=== PATIENT | female | born 1940 | race Caucasian/White ===

== ENCOUNTER → 2024-11-02 | Outpatient (CLI) | payer BC, MEDICARE, SELFPAY ==
[2024-11-02 12:09] LABS: Basophils % (Auto) 0 % (0-2.5); Eosinophils # (Auto) 0.1 Thou/mm3 (0.0-0.5); Eosinophils % (Auto) 2 % (0-10); Hematocrit 47.3 % (36.0-46.0); Hemoglobin 15.7 g/dL (12.0-16.0); Immature Granulocytes % (Auto) 0 % (0-0); Immature Granulocytes Auto 0.01 Thou/mm3 (0.00-0.00); Lymphocytes # (Auto) 1.9 Thou/mm3 (1.0-4.8); Lymphocytes % (Auto) 33 % (10-50); Mean Corpuscular HGB Conc 33.2 g/dl (31.0-37.0); Mean Corpuscular Volume 94 fL (80-100); Monocytes # (Auto) 0.5 Thou/mm3 (0.0-0.8); Monocytes % (Auto) 8 % (0-12); Neutrophils # (Auto) 3.2 Thou/mm3 (1.8-7.7); Neutrophils % (Auto) 56 % (37-80); Nucleated Red Blood Cell % 0 /100 WBC (0); Platelet Count 188 Thou/mm3 (140-440); Red Blood Count 5.06 Miln/mm3 (4.00-5.20); White Blood Count 5.7 Thou/mm3 (3.6-11.0)
[2024-11-02 12:45] LABS: Alanine Aminotransferase 41 U/L (10-49); Albumin, Serum 4.4 gm/dL (3.4-4.8); Albumin/Globulin Ratio 1.8 (1.2-2.2); Alkaline Phosphatase 84 U/L (46-116); Anion Gap 9 (7-16); Aspartate Amino Transferase 20 U/L (0-34); BUN/Creatinine Ratio 23 Ratio (12-20); Bilirubin,Total 0.7 mg/dL (0.3-1.2); Blood Urea Nitrogen 18 mg/dL (9-23); Calcium 9.9 mg/dL (8.3-10.6); Calcium (Corrected) 9.9 mg/dL (8.5-10.1); Carbon Dioxide 26.1 mMol/L (20.0-31.0); Chloride 108 mMol/L (98-107); Cholesterol 180 mg/dL (132-200); Creatinine (Component) 0.8 mg/dL (0.6-1.3); Globulin 2.5 gm/dL (2.3-3.5); Glucose 94 mg/dL (74-106); HDL Cholesterol 61 mg/dL (40-60); LDL Cholesterol,Calculated 99 mg/dL (0-130); Osmolality,Calculated 286 (275-295); Potassium 4.5 mMol/L (3.4-5.1); Sodium 143 mMol/L (136-145); Thyroid Stimulating Hormone 1.83 uIU/mL (0.55-4.78); Total Protein 6.9 gm/dL (5.7-8.2); Triglycerides 102 mg/dL (30-150); eGFR > 60 See Note
== END | disposition home or self-care (01) ==
PROVIDERS: PCP Family Medicine; Referring Provider Family Medicine; Visit Provider Family Medicine
DX: Z00.00 Encounter for general adult medical examination without abnormal findings (principal); I25.10 Atherosclerotic heart disease of native coronary artery without angina pectoris; E78.2 Mixed hyperlipidemia
CPT/HCPCS: 36415; 80053; 80061; 84443; 85025

== ENCOUNTER → 2025-05-13 | Outpatient (CLI) | payer MEDICARE, BC, SELFPAY ==
[2025-05-13 12:06] LABS: Basophils % (Auto) 1 % (0-2.5); Eosinophils # (Auto) 0.2 Thou/mm3 (0.0-0.5); Eosinophils % (Auto) 3 % (0-10); Hematocrit 44.2 % (36.0-46.0); Hemoglobin 14.6 g/dL (12.0-16.0); Immature Granulocytes % (Auto) 0 % (0-0); Immature Granulocytes Auto 0.02 Thou/mm3 (0.00-0.00); Lymphocytes # (Auto) 2.2 Thou/mm3 (1.0-4.8); Lymphocytes % (Auto) 42 % (10-50); Mean Corpuscular Hemoglobin 28.7 pg (25.0-35.0); Mean Corpuscular Volume 87 fL (80-100); Monocytes # (Auto) 0.5 Thou/mm3 (0.0-0.8); Monocytes % (Auto) 9 % (0-12); Neutrophils # (Auto) 2.3 Thou/mm3 (1.8-7.7); Neutrophils % (Auto) 45 % (37-80); Nucleated Red Blood Cell % 0 /100 WBC (0); Platelet Count 196 Thou/mm3 (140-440); RDW Standard Deviation 49.8 fL (36.4-46.3); Red Blood Count 5.08 Miln/mm3 (4.00-5.20); White Blood Count 5.2 Thou/mm3 (3.6-11.0)
[2025-05-13 12:27] LABS: Alanine Aminotransferase 18 U/L (10-49); Albumin, Serum 4.1 gm/dL (3.4-4.8); Albumin/Globulin Ratio 1.6 (1.2-2.2); Alkaline Phosphatase 88 U/L (46-116); Anion Gap 9 (7-16); Aspartate Amino Transferase 24 U/L (0-34); BUN/Creatinine Ratio 16 Ratio (12-20); Bilirubin,Total 0.4 mg/dL (0.3-1.2); Blood Urea Nitrogen 13 mg/dL (9-23); Calcium 9.8 mg/dL (8.3-10.6); Calcium (Corrected) 9.8 mg/dL (8.5-10.1); Carbon Dioxide 29.4 mMol/L (20.0-31.0); Cardiac Risk Estimate 4.4 RATIO (3.7-5.6); Chloride 107 mMol/L (98-107); Cholesterol 248 mg/dL (132-200); Creatinine (Component) 0.8 mg/dL (0.6-1.3); Globulin 2.6 gm/dL (2.3-3.5); Glucose 111 mg/dL (74-106); HDL Cholesterol 57 mg/dL (40-60); LDL Cholesterol,Calculated 166 mg/dL (0-130); Osmolality,Calculated 289 (275-295); Potassium 4.3 mMol/L (3.4-5.1); Sodium 145 mMol/L (136-145); Thyroid Stimulating Hormone 0.71 uIU/mL (0.55-4.78); Total Protein 6.7 gm/dL (5.7-8.2); Triglycerides 123 mg/dL (30-150); eGFR > 60 See Note
[2025-05-13 13:15] LABS: Collection Type, Urine Clean Catch
[2025-05-13 14:11] LABS: Bacteria,Urine 4+; Bilirubin,Urine Negative (Negative); Blood,Urine Negative (Negative); Color,Urine Yellow (Lt Yel-Yel); Glucose, Urine Negative (Negative); Ketones,Urine Negative (Negative); Leukocyte Esterase,Urine Positive (Negative); Nitrite,Urine Positive (Negative); Protein,Urine Negative (Neg - Trace); RBC,Urine 2 /hpf (0-3); Specific Gravity,Urine 1.026 (1.001-1.035); Squamous Epithelial Cell,Urine < 1 /hpf (0-5); Urobilinogen,Urine Negative mg/dL (0.0-1.0); WBC,Urine 12 /hpf (0-5)
[2025-05-13 14:13] LABS: Clarity,Urine Cloudy (Clear/Hazy)
== END | disposition home or self-care (01) ==
LOC: COPL 11:18
PROVIDERS: PCP Family Medicine; Referring Provider Family Medicine; Visit Provider Family Medicine
DX: Z00.00 Encounter for general adult medical examination without abnormal findings (principal); E78.2 Mixed hyperlipidemia; E03.9 Hypothyroidism, unspecified; I10 Essential (primary) hypertension
CPT/HCPCS: 36415; 80053; 80061; 81001; 84443; 85025

== ENCOUNTER 2025-07-02 20:47 | Emergency (ER) | payer MEDICARE, BC, SELFPAY ==
[2025-07-02 20:48] VITALS: BP 150/78; PULSE 77; RESP 18; TEMP 37.2; O2SAT 98
--- NOTE | 2025-07-02 20:54 | EDNOTE_ITS ---
ED General RME/HPI General Chief complaint: General Adult/Misc Complain Stated complaint: NOSE BLEED Time Seen by Provider: 07/02/25 20:53 Arrival date/time: 07/02/25 20:47 CC: Bloody nose HPI patient presents to the ER via EMS who report the patient initial call went out for bloody nose however when they arrived the patient's nose stopped bleeding patient is on blood thinners however the family members the patient state the patient had significant GI bleed 6 7 months ago and they are worried that she may be bleeding again . Patient is demented with poor historian states that she did have a bloody nose recently but states her stools have been pale yellow. Patient denies fever chills chest pain shortness of breath or difficulty breathing. EMS report stable vital signs. Patient is awake alert and oriented to self. Related Data Home Medications ?Medication ?Instructions ?Recorded ?Confirmed Unobtainable 10/05/23 10/05/23 Allergies Allergy/AdvReac Type Severity Reaction Status Date / Time MYCIN ANTIBIOTICS Allergy Mild Uncoded 09/17/09 00:40 Review of Systems Review of Systems Narrative Review of Systems: GEN: No fever, no chills, no weight loss EYES: No discharge, no visual changes, no pain HEENT: No ear pain, no congestion, no sore throat PULM: No shortness of breath, no cough, no congestion CV: No chest pain, no dyspnea on exertion, no palpitations GI: No nausea, no vomiting, no diarrhea, no pain, no constipation : No frequency, no urgency, no dysuria MUSC/SKEL: No joint pain, no back pain SKIN: No rash PSYCH: No hallucinations, no depression HEME/LYMPH: No easy bleeding or bruising tendencies NEURO: No weakness, no headache Past Medical History Past Medical History CARDIAC: Negative Congestive Heart Failure RESPIRATORY: Negative Chronic Obstructive Pulmonary Disease (COPD) GENITOURINARY: Negative Renal Disease REPRODUCTIVE: Positive Breast Cancer (bilat breast) ENDOCRINE: Negative Diabetes Mellitus Type 1 or Diabetes Mellitus Type 2 OTHER HISTORY: Positive Cancer and Breast Cancer (bilat breast) Social History SMOKING STATUS: Former smoker ED Exam Narrative Physical exam: [General: Appears not in any acute distress Head normocephalic HEENT: Within acceptable limits Neck is supple nontender Chest equal chest rise nontender to palpation Respiratory: Clear to auscultation no wheezes crackles or rubs CV: Rate rhythm is regular no murmurs rubs or clicks Abdomen is distended secondary to body habitus soft nontender no masses positive bowel sounds all 4 quadrants GI: Rectum: Old hemorrhoids, moderate rectal tone, vault is small amount of firm stool guaiac negative. Back: No CVA tenderness no spinous process tenderness from cervical spine thoracic and lumbar spine Skin: Intact no petechiae rash induration ulceration or crepitus Extremities: Moving all extremity against resistance cap refill less than 2 seconds neurosensory intact Neuro: Awake alert oriented x3 Glascow coma 15 no focal deficits] Course Quality Measures none Orders Category Date Time Status CBC Stat Lab 07/02/25 21:20 Completed CMP [Comprehensive Metabolic Panel] Stat Lab 07/02/25 21:20 Completed Vital Signs Vital signs: Vital Signs Temperature 98.9 F 07/02/25 20:48 Pulse Rate 77 07/02/25 20:48 Respiratory Rate 18 07/02/25 20:48 Blood Pressure 150/78 H 07/02/25 20:48 Pulse Oximetry (%) 98 07/02/25 20:48 Oxygen Delivery Method Room Air 07/02/25 20:48 Discharge Plan Plan Patient Disposition: HOME (Self Care) Patient condition on transfer: Stable Prescriptions/Referrals Prescriptions/Med Rec: No Action Unobtainable Referrals: No Primary/Family,Physician [Primary Care Provider] - In 1 week Quinton Brady MD [Physician] - In 1 week Problem List Clinical Impression: Epistaxis Patient/Caregiver Discharge Instructions Print Language: Swazi Stand Alone Forms: Brittany Award Info., Patient Portal Info Letter PA/HOME HEALTH CARE WORKER Supervising Physician PA/HOME HEALTH CARE WORKER Supervising Physician: Gumaro Galindo ENP [facility] Clinical Information Provided by patient and EMS Medical Records [facility] Meds/Rx Considered, not Ordered None Labs/Rad/Tests considered, not Ordered None Chronic Illness/Social Conditions Add or document further as needed: GI bleed 7 months ago Lab Interpretation Labs: interpreted by hi Lab(s) interpretation(s): CBC shows no leukocytosis H&H of 15.7 and 47.6 normal platelet count. CMP shows no acute electrolyte imbalances renal impairment transaminitis or T. bili elevation. Imaging Imaging interpretation: none Diagnosis Differential diagnosis: Epistaxis anemia GI bleed Dispositon Disposition: Discharge Home
[2025-07-02 20:56] VITALS: PULSE 80; RESP 14; O2SAT 99; BMI 53.4
[2025-07-02 21:20] VITALS: BP 158/105; PULSE 84; RESP 14; TEMP 37; O2SAT 99
[2025-07-02 21:26] LABS: Basophils # (Auto) 0.0 Thou/mm3 (0.0-0.2); Basophils % (Auto) 1 % (0-2.5); Eosinophils # (Auto) 0.1 Thou/mm3 (0.0-0.5); Eosinophils % (Auto) 2 % (0-10); Hematocrit 47.6 % (36.0-46.0); Hemoglobin 15.7 g/dL (12.0-16.0); Immature Granulocytes Auto 0.02 Thou/mm3 (0.00-0.00); Lymphocytes # (Auto) 2.4 Thou/mm3 (1.0-4.8); Lymphocytes % (Auto) 29 % (10-50); Mean Corpuscular HGB Conc 33.0 g/dl (31.0-37.0); Mean Corpuscular Hemoglobin 30.2 pg (25.0-35.0); Mean Corpuscular Volume 92 fL (80-100); Monocytes # (Auto) 0.7 Thou/mm3 (0.0-0.8); Monocytes % (Auto) 9 % (0-12); Neutrophils # (Auto) 4.8 Thou/mm3 (1.8-7.7); Neutrophils % (Auto) 60 % (37-80); Nucleated Red Blood Cell # 0.00 Thou/mm3 (0.00-0.00); Nucleated Red Blood Cell % 0 /100 WBC (0); Platelet Count 210 Thou/mm3 (140-440); RDW Standard Deviation 48.6 fL (36.4-46.3); Red Blood Count 5.20 Miln/mm3 (4.00-5.20); White Blood Count 8.1 Thou/mm3 (3.6-11.0)
--- NOTE | 2025-07-02 21:30 | PC.NURSE ---
THIS RN INFORMED PATIENT THAT FAMILY IS UNAVAILABLE TO PICK HER UP FROM THE ER UNTIL THE MORNING PER EMS. FAMILY CONTACTS WERE ATTEMPTED TO BE REACHED VIA TELEPHONE HOWEVER NO ANSWER. THIS RN HELPED CHANGE PATIENT BACK INTO HOME CLOTHES TO HAVE THE PATIENT MORE COMFORTABLE IN BED PER PATIENT REQUEST.
[2025-07-02 21:47] LABS: Alanine Aminotransferase 11 U/L (10-49); Albumin, Serum 4.7 gm/dL (3.4-4.8); Albumin/Globulin Ratio 1.6 (1.2-2.2); Alkaline Phosphatase 100 U/L (46-116); Anion Gap 11 (7-16); Aspartate Amino Transferase 18 U/L (0-34); BUN/Creatinine Ratio 19 Ratio (12-20); Bilirubin,Total 0.5 mg/dL (0.3-1.2); Blood Urea Nitrogen 15 mg/dL (9-23); Calcium 10.4 mg/dL (8.3-10.6); Calcium (Corrected) 10.4 mg/dL (8.5-10.1); Carbon Dioxide 25.7 mMol/L (20.0-31.0); Chloride 106 mMol/L (98-107); Creatinine (Component) 0.8 mg/dL (0.6-1.3); Estimated Creatinine Clearance 77.6 mL/min (>60); Globulin 2.9 gm/dL (2.3-3.5); Glucose 94 mg/dL (74-106); Osmolality,Calculated 285 (275-295); Potassium 3.4 mMol/L (3.4-5.1); Sodium 143 mMol/L (136-145); Total Protein 7.6 gm/dL (5.7-8.2); eGFR > 60 See Note
--- NOTE | 2025-07-02 22:30 | PC.NURSE ---
THIS RN REDIRECTED PATIENT BACK INTO BED. PER PATIENT I HEAR MY SON, HE IS HERE I WANT TO SPEAK TO HIM . THIS RN REORIENTED PATIENT THAT SHE IS IN THE HOSPITAL DISCHARGED AND PENDING RIDE FROM FAMILY IN THE MORNING. PATIENT LAID BACK IN BED.
[2025-07-02 23:20] VITALS: BP 158/85; PULSE 78; RESP 14; TEMP 37; O2SAT 99
--- NOTE | 2025-07-02 23:30 | PC.NURSE ---
PATIENT PROVIDED WITH OATMEAL AND JUICE BY [employer]. PATIENT SITTING CALMLY IN BED EATING OAT MEAL. PATIENT REINFORMED SHE IS IN THE HOSPITAL, DISCHARGED PENDING RIDE FROM FAMILY IN THE AM.
--- NOTE | 2025-07-03 00:30 | PC.NURSE ---
PT ATTEMPTING TO GET OUT OF BED TO GO HOME . PATIENT REDIRECTED TO BED. PT INFORMED SHE IS DISCHARGED AND PENDING RIDE FROM FAMILY IN THE MORNING.
--- NOTE | 2025-07-03 03:00 | PC.NURSE ---
PER PATIENT WHAT IS GOING ON? WHY AM I HERE? . PATIENT INFORMED SHE IS IN THE HOSPITAL, DISHCARGED AND PENDING RIDE FROM FAMILY. PT OFFERED TO BE ACCOMPANIED TO THE BATHROOM. PATIENT DECLINED USED OF BATHROOM.
[2025-07-03 03:33] VITALS: BP 144/74; PULSE 71; RESP 14; TEMP 37; O2SAT 100
--- NOTE | 2025-07-03 04:00 | PC.NURSE ---
PATIENT APPEARS ASLEEP, CHEST RISE AND FALL NOTED.
--- NOTE | 2025-07-03 05:00 | PC.NURSE ---
PATIENT APPEARS ASLEEP, CHEST RISE AND FALL NOTED.
--- NOTE | 2025-07-03 06:21 | PC.NURSE ---
PATIENT APPEARS ASLEEP, CHEST RISE AND FALL NOTED.
--- NOTE | 2025-07-03 08:09 | PC.NURSE ---
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
[2025-07-03 08:22] VITALS: BP 130/66; PULSE 65; RESP 16; TEMP 36.9; O2SAT 95
== END 2025-07-03 09:31 | disposition home or self-care (01) ==
PROVIDERS: Registered Nurse General Practice; Emergency Provider Emergency Medicine
DX: R04.0 Epistaxis (principal)
CPT/HCPCS: 36415; 80053; 85025; 99283; A9270

== ENCOUNTER 2025-10-03 12:23 | Emergency (ER) | payer MEDICARE, BC, SELFPAY ==
[2025-10-03 12:32] VITALS: PULSE 71; RESP 18; O2SAT 99; BMI 27.4
[2025-10-03 12:41] VITALS: BP 147/82; PULSE 70; RESP 18; TEMP 35.8; O2SAT 96
--- NOTE | 2025-10-03 13:26 | XR_ITS ---
Examination: CT brain head without contrast. 2-D sagittal coronal reconstructions Date and time of exam: 10/03/2025, 3:41 p.m. INDICATION: AMS COMPARISON: Noncontrast head CT 10/05/2023 CTDI: vol (mGy): 44.9 DLP: (mGycm): 912 Technique: Multiple CT axial sections of the brain have been obtained, 5 mm slice thickness. Contrast has not been administered. 2-D sagittal, coronal reconstructions have been obtained Low dose protocols were performed. One or more of the following dose reduction techniques were used; automated exposure control, adjustment of the mA and/or KV according to patient size, use of iterative reconstruction technique. Findings: Stable appearance of the brain compared to prior head CT. No evidence for acute large vessel ischemic infarction, hemorrhage or mass. Once for midline shift or hydrocephalus. Redemonstration of bilateral choroid plexus xanthogranulomas. Redemonstration of global cerebral atrophy and mild cerebellar atrophy. Redemonstration of bilateral carotid and left vertebral atherosclerotic calcifications. The calvarium is intact; no fracture or concerning lytic or blastic lesion. Redemonstration of benign sclerotic density in the right frontal sinus. Minimal mucosal hypertrophy noted in the anterior ethmoid air cells, greater on the right. No fluid levels or complete opacification of the paranasal sinuses, mastoid air cells or middle ear cavities. The scalp is unremarkable. Impression: Negative noncontrast head CT for acute intracranial abnormality. No significant interval change since the comparison study.
--- NOTE | 2025-10-03 13:26 | EKG_ITS ---
[facility] Test Date: 2025-10-03 Pat Name: CJ DUNLAP Department: Room: - Gender: Female Systems Eng: : 1940 Requested By: Anirudh Acharya Order Number: [id number] Reading MD: Anirudh Acharya Measurements Intervals [place] Rate: 61 P: 63 NV: 180 QRS: 4 QRSD: 95 T: 67 QT: 430 QTc: 436 Interpretive Statements SINUS RHYTHM POSSIBLE LEFT ATRIAL ENLARGEMENT [-0.1mV P-WAVE IN V1/V2] NONSPECIFIC ST & T-WAVE ABNORMALITY No previous ECG available for comparison /store/S0/[id number].pdf
[2025-10-03] MEDS: SODIUM CHLORIDE 0.9% 1000 ML 1,000 ML 125 ML IV (14:13)
[2025-10-03 14:15] VITALS: BP 167/74; PULSE 60; RESP 16; TEMP 36.7; O2SAT 100
[2025-10-03 14:21] LABS: Basophils # (Auto) 0.0 Thou/mm3 (0.0-0.2); Basophils % (Auto) 1 % (0-2.5); Eosinophils # (Auto) 0.1 Thou/mm3 (0.0-0.5); Eosinophils % (Auto) 2 % (0-10); Hematocrit 46.2 % (36.0-46.0); Hemoglobin 15.5 g/dL (12.0-16.0); Immature Granulocytes Auto 0.01 Thou/mm3 (0.00-0.00); Lymphocytes # (Auto) 2.1 Thou/mm3 (1.0-4.8); Lymphocytes % (Auto) 32 % (10-50); Mean Corpuscular HGB Conc 33.5 g/dl (31.0-37.0); Mean Corpuscular Hemoglobin 30.5 pg (25.0-35.0); Mean Corpuscular Volume 91 fL (80-100); Monocytes # (Auto) 0.4 Thou/mm3 (0.0-0.8); Monocytes % (Auto) 6 % (0-12); Neutrophils # (Auto) 3.8 Thou/mm3 (1.8-7.7); Neutrophils % (Auto) 59 % (37-80); Nucleated Red Blood Cell # 0.00 Thou/mm3 (0.00-0.00); Nucleated Red Blood Cell % 0 /100 WBC (0); Platelet Count 161 Thou/mm3 (140-440); RDW Standard Deviation 47.1 fL (36.4-46.3); Red Blood Count 5.08 Miln/mm3 (4.00-5.20); White Blood Count 6.4 Thou/mm3 (3.6-11.0)
[2025-10-03 14:34] LABS: INR 1.0 (0.9-1.3); Prothrombin Time 10.9 Seconds (9.0-12.2)
[2025-10-03 14:36] LABS: Collection Type, Urine Catheter
[2025-10-03 14:47] LABS: Acetaminophen 2.1 mcg/mL (10.0-20.0); Alanine Aminotransferase 20 U/L (10-49); Albumin, Serum 4.4 gm/dL (3.4-4.8); Albumin/Globulin Ratio 2.1 (1.2-2.2); Alcohol, Blood Medical < 10.0 mg/dL (0-10.0); Alkaline Phosphatase 77 U/L (46-116); Anion Gap 11 (7-16); Aspartate Amino Transferase 23 U/L (0-34); BUN/Creatinine Ratio 17 Ratio (12-20); Bilirubin,Total 0.6 mg/dL (0.3-1.2); Blood Urea Nitrogen 12 mg/dL (9-23); Calcium 9.3 mg/dL (8.3-10.6); Calcium (Corrected) 9.3 mg/dL (8.5-10.1); Carbon Dioxide 25.3 mMol/L (20.0-31.0); Chloride 111 mMol/L (98-107); Creatinine (Component) 0.7 mg/dL (0.6-1.3); Estimated Creatinine Clearance 54.2 mL/min (>60); Globulin 2.1 gm/dL (2.3-3.5); Glucose 87 mg/dL (74-106); Magnesium 2.2 mg/dL (1.6-2.6); Osmolality,Calculated 291 (275-295); Potassium 3.7 mMol/L (3.4-5.1); Salicylate < 3.0 mg/dL; Sodium 147 mMol/L (136-145); Thyroid Stimulating Hormone 0.31 uIU/mL (0.55-4.78); Total Protein 6.5 gm/dL (5.7-8.2); Troponin I < 0.020 ng/mL (0.0-0.045); eGFR > 60 See Note
[2025-10-03 14:49] LABS: Bacteria,Urine 2+; Bilirubin,Urine Negative (Negative); Blood,Urine 1+ (Negative); Color,Urine Yellow (Lt Yel-Yel); Glucose, Urine Negative (Negative); Ketones,Urine Negative (Negative); Leukocyte Esterase,Urine Positive (Negative); Nitrite,Urine Positive (Negative); PH,Urine 5.5 (5.0-7.0); Protein,Urine Negative (Neg - Trace); RBC,Urine 5 /hpf (0-3); Specific Gravity,Urine 1.017 (1.001-1.035); Squamous Epithelial Cell,Urine 2 /hpf (0-5); Urobilinogen,Urine Negative mg/dL (0.0-1.0); WBC,Urine 53 /hpf (0-5)
[2025-10-03 14:55] LABS: Clarity,Urine Hazy (Clear/Hazy); Culture Indicated,Urine Yes
[2025-10-03 15:09] LABS: Amphetamine/Methamp Scrn,U Negative (Negative); Barbiturate Screen,Urine Negative (Negative); Benzodiazepines Screen,Urine Negative (Negative); Benzoylecgonine Screen, Ur Negative (Negative); Fentanyl Screen,Urine Negative (Negative); Opiate Screen,Urine Negative (Negative); THC Screen,Urine Negative (Negative)
--- NOTE | 2025-10-03 15:27 | EDNOTE_ITS ---
Altered Mental Status RME/HPI General Chief Complaint: Altered Mental Status Stated Complaint: ALTERED Time Seen by Provider: 10/03/25 12:29 Arrival date/time: 10/03/25 12:23 Limitations: no limitations RME / HPI RME / HPI narrative: 85 year old female with history of breast CA s/p left lumpectomy(1983) and right mastectomy(1985) presents to the ED BIBA from home for altered mental status today. Per medics report, caregiver on scene reported the patient was not acting her usual self. They described the patient to be slower than her baseline and was last known well at 21:00 hours. In the ED, patient is unable to provide any additional history. Related Data Allergies Allergy/AdvReac Type Severity Reaction Status Date / Time MYCIN ANTIBIOTICS Allergy Mild Uncoded 09/17/09 00:40 Review of Systems Review of Systems ROS Unobtainable: unobtainable due to mental status Past Medical History Past Medical History REPRODUCTIVE: Positive Breast Cancer OTHER HISTORY: Positive Cancer and Breast Cancer Social History SMOKING STATUS: Unknown if ever smoked ED Exam General Limitations: Present no limitations General appearance: Present in no apparent distress and other (awake, appears confused, able to follow commands ) Head Head exam: Present atraumatic Eye Eye exam: Present normal appearance, PERRL and EOMI ENT ENT exam: Present normal exam, normal oropharynx and mucous membranes moist Neck Neck exam: Present normal inspection, full ROM and trachea midline Chest Chest inspection: Present normal inspection and symmetric chest wall rise Respiratory Respiratory exam: Present normal lung sounds bilaterally Cardiovascular Cardiovascular exam: Present regular rate, normal rhythm and normal heart sounds Abdominal Exam Abdominal exam: Present soft and normal bowel sounds Extremities Exam Extremities exam: Present normal inspection and full ROM Back Exam Back exam: Present normal inspection and full ROM Neurological Exam Neurological exam: Present CN II-XII intact and other (awake, appears confused, able to follow commands ) Psychiatric Psychiatric exam: Present normal affect and normal mood Skin Skin exam: Present warm, dry, intact and normal color Course Course Course Narrative: Patient remains clinically stable throughout the emergency department visit. We reviewed all the results, analysis, and treatment plans. Patient is amenable to discharge. Strict return precautions were outlined. Quality Measures none Orders Category Date Time Status Bedside Blood Glucose NOW Care 10/03/25 13:26 Completed Cloth Desizing Range Tender NOW Care 10/03/25 13:26 Completed Continuous Pulse Oximetry NOW Care 10/03/25 13:26 Completed EKG (ED ONLY) *Do not use* NOW Care 10/03/25 13:26 Completed In and Out Catheter X1 Care 10/03/25 13:26 Completed Insert IV NOW Care 10/03/25 13:26 Completed NPO NOW Care 10/03/25 13:[address] head/brain wo con Stat Exams 10/03/25 13:26 Completed CXRP [XR chest 1V portable] Stat Exams 10/03/25 16:20 Completed EKG (ED Only) Stat Exams 10/03/25 13:26 Draft Acetaminophen Stat Lab 10/03/25 14:05 Completed Alcohol, Blood Medical Stat Lab 10/03/25 14:05 Completed Blood Culture (Lab) Stat Lab 10/03/25 14:05 Results CBC Stat Lab 10/03/25 14:05 Completed Comprehensive Metabolic Panel Stat Lab 10/03/25 14:05 Completed Drug Screen,Urine Stat Lab 10/03/25 14:25 Completed Magnesium Stat Lab 10/03/25 14:05 Completed Prothrombin Time with INR Stat Lab 10/03/25 14:05 Completed Salicylate Stat Lab 10/03/25 14:05 Completed Thyroid Stimulating Hormone Stat Lab 10/03/25 14:05 Completed Troponin I Stat Lab 10/03/25 14:05 Completed Urinalysis, C/S if Indicated Stat Lab 10/03/25 14:25 Completed Urine Culture Stat Lab 10/03/25 14:25 Completed Sodium Chloride 0.9% 1000 ml [Ns] 1,000 ml Med 10/03/25 13:26 Discontinued IV 125 mls/hr cefTRIAXone [Rocephin] 2 gm Med 10/03/25 16:21 Discontinued SODIUM CHLORIDE 0.9% (Popper) [Ns 0.9% (P)] 50 ml IV X1 Oxygen Delivery NOW RT 10/03/25 13:26 Completed Vital Signs Vital signs: Vital Signs Temperature 96.5 F L 10/03/25 12:41 Pulse Rate 70 10/03/25 12:41 Respiratory Rate 18 10/03/25 12:41 Blood Pressure 147/82 H 10/03/25 12:41 Pulse Oximetry (%) 96 10/03/25 12:41 Oxygen Delivery Method Room Air 10/03/25 12:41 Pulse ox is 96% on room air which is adequate. Altered Mental Status Patient data External records reviewed:: [facility] previous records and EMS form Clinical information provided by:: EMS Social determinants that could affect healthcare access:: none Patient has the following chronic illnesses:: DEMENTIA How is presenting disease/condition affected by chronic disease/condition?: exacerbated by Evaluation data The following diagnostics were reviewed and interpreted by me:: EKG tracing(s) (EKG @ 13:48. Normal sinus rhythm, rate 61, no STEMI. ) Lab and/or radiology exams considered but not ordered:: None Interpretation Summary: Ordering Physician: Anirudh Chaudhari MD Date of Service: 10/03/25 Procedure(s): XR chest 1V portable Accession Number(s): [id number] cc: Anirudh Chaudhari MD; NO PRIMARY/FAMILY,PHYSICIAN; Jason Morales DO~ CLINICAL INDICATION: COUGH TECHNIQUE: XR chest 1V portable Study date and time: 10/03/2025 at 4:24 p.m. COMPARISON: 09/17/2009 FINDINGS: The cardiomediastinal silhouette is within normal limits of size for portable technique. No evidence for acute congestive heart failure. Calcific plaque is present at the aortic arch. Interval development of coarse markings throughout the lungs, with bibasilar predominance, left side greater than right. This could be due to interstitial edema, inflammation and/or fibrosis. No segmental or lobar consolidation. No mass. No pleural effusion or pneumothorax. Multifocal degenerative changes with otherwise no evidence for recent fracture or aggressive lesion. Surgical clips are identified in the bilateral axilla. IMPRESSION: Interval development of coarse markings throughout the lungs, with bibasilar predominance, left side greater than right. This could be due to interstitial edema, inflammation and/or fibrosis. - This report was generated utilizing speech recognition software. - Dictated By: Jason Morales DO Signed By: <Electronically signed by Jason Morales DO in OV> 10/03/25 1644 Ordering Physician: Anirudh Chaudhari MD Date of Service: 10/03/25 Procedure(s): CT head/brain wo con Accession Number(s): [id number] cc: Anirudh Chaudhari MD; NO PRIMARY/FAMILY,PHYSICIAN; Jason Morales DO~ Examination: CT brain head without contrast. 2-D sagittal coronal reconstructions Date and time of exam: 10/03/2025, 3:41 p.m. INDICATION: AMS COMPARISON: Noncontrast head CT 10/05/2023 CTDI: vol (mGy): 44.9 DLP: (mGycm): 912 Technique: Multiple CT axial sections of the brain have been obtained, 5 mm slice thickness. Contrast has not been administered. 2-D sagittal, coronal reconstructions have been obtained Low dose protocols were performed. One or more of the following dose reduction techniques were used; automated exposure control, adjustment of the mA and/or KV according to patient size, use of iterative reconstruction technique. Findings: Stable appearance of the brain compared to prior head CT. No evidence for acute large vessel ischemic infarction, hemorrhage or mass. Once for midline shift or hydrocephalus. Redemonstration of bilateral choroid plexus xanthogranulomas. Redemonstration of global cerebral atrophy and mild cerebellar atrophy. Redemonstration of bilateral carotid and left vertebral atherosclerotic calcifications. The calvarium is intact; no fracture or concerning lytic or blastic lesion. Redemonstration of benign sclerotic density in the right frontal sinus. Minimal mucosal hypertrophy noted in the anterior ethmoid air cells, greater on the right. No fluid levels or complete opacification of the paranasal sinuses, mastoid air cells or middle ear cavities. The scalp is unremarkable. Impression: Negative noncontrast head CT for acute intracranial abnormality. No significant interval change since the comparison study. Dictated By: Jason Morales DO Signed By: <Electronically signed by Jason Morales DO in OV> 10/03/25 1601 Medications / Prescriptions Medications or Prescriptions considered but not ordered:: None Medication administrations:: Medication Administration History Discontinued Medications Sodium Chloride (Ns) 1,000 mls @ 125 mls/hr IV .Q8H ONE Stop: 10/03/25 21:25 Last Admin: 10/03/25 14:13 Dose: 125 mls/hr Documented By: KAYCEE Ceftriaxone Sodium 2 gm/ (Sodium Chloride) 50 mls @ 100 mls/hr IV X1 ONE Stop: 10/03/25 16:50 Last Infusion: 10/03/25 18:15 Dose: Infused Documented By: MARIA L Admin: 10/03/25 17:20 Dose: 100 mls/hr Documented By: MARIA L See above Consultations Consultation(s) initiated? (list below): No Diagnosis Differential diagnosis altered mental status: altered mental status, dementia, hypoglycemia, hyponatremia, subarachnoid hemorrhage and sepsis Most likely diagnosis given after review of the tests above:: Altered mental status Acute UTI Admission Indicated Admission indicated?: not indicated Explain why admission is indicated or not indicated:: With no condition needing emergent intervention, there was no indication for admission. Admission Request Was there a request for admission?: No Disposition Plan Disposition Plan: Discharge Discharge Attestation Discharge Attestation: The patient and all family members were given an opportunity to ask questions and understood the discharge instructions. Discharge instructions specifically effects, indications for sooner follow up or return to the emergency department, and the expected course of current diagnosis. Patient condition: Stable Discharge Plan Plan Patient Disposition: HOME (Self Care) Patient condition on transfer: Stable Prescriptions/Referrals Referrals: No Primary/Family,Physician [Primary Care Provider] - In 1 week Problem List Clinical Impression: Altered mental status, Acute UTI Patient/Caregiver Discharge Instructions Discharge Activity: activity as tolerated Education Materials: Understanding Urinary Tract ..., ED CYSTITIS Female Adult Additional Instructions: Take antibiotics as directed follow-up with your doctor in 3 to 4 days. Be sure to check the urine culture results with your doctor to make sure the antibiotic she is taking is effective. Print Language: Portuguese Stand Alone Forms: Brittany Award Info., Patient Portal Info Letter
[2025-10-03 16:08] VITALS: BP 119/62; PULSE 71; RESP 18; TEMP 36.4; O2SAT 98
--- NOTE | 2025-10-03 16:20 | XR_ITS ---
CLINICAL INDICATION: COUGH TECHNIQUE: XR chest 1V portable Study date and time: 10/03/2025 at 4:24 p.m. COMPARISON: 09/17/2009 FINDINGS: The cardiomediastinal silhouette is within normal limits of size for portable technique. No evidence for acute congestive heart failure. Calcific plaque is present at the aortic arch. Interval development of coarse markings throughout the lungs, with bibasilar predominance, left side greater than right. This could be due to interstitial edema, inflammation and/or fibrosis. No segmental or lobar consolidation. No mass. No pleural effusion or pneumothorax. Multifocal degenerative changes with otherwise no evidence for recent fracture or aggressive lesion. Surgical clips are identified in the bilateral axilla. IMPRESSION: Interval development of coarse markings throughout the lungs, with bibasilar predominance, left side greater than right. This could be due to interstitial edema, inflammation and/or fibrosis. - This report was generated utilizing speech recognition software. -
[2025-10-03] MEDS: cefTRIAXone 2 GM in SODIUM CHLORIDE 0.9% (Popper) 50 ML IV (17:20)
[2025-10-03 18:21] VITALS: BP 114/57; PULSE 70; RESP 20; O2SAT 97
== END 2025-10-03 18:24 | disposition home or self-care (01) ==
PROVIDERS: Emergency Provider Family Medicine
DX: N39.0 Urinary tract infection, site not specified (principal)
CPT/HCPCS: 36415; 70450; 71045; 80053; 80307; 80320; 80329; 81001; 83735; 84443; 84484; 85025; 85610; 87040; 87077; 87086; 87186; 93005; 96365; 99284; J0696; J7030; J7050; G0480

== ENCOUNTER 2025-10-19 12:53 | Emergency (ER) | payer MEDICARE, BC, SELFPAY ==
[2025-10-19 12:54] VITALS: BP 140/78; PULSE 96; RESP 20; TEMP 36.7; O2SAT 96
[2025-10-19 12:58] VITALS: PULSE 72; RESP 20; O2SAT 98; BMI 25.7
[2025-10-19 13:09] VITALS: BP 90/76; PULSE 74; RESP 16; TEMP 36.8; O2SAT 95
--- NOTE | 2025-10-19 13:19 | PC.NURSE ---
pt cant recall why she is here, does not remember what happen prior, i asked who she lives with she was not able to respond she stood quiet, i asked if she had family to call she says she has a son asked if she knew number she states no she does not. asked if we could call the person list on contact she stated no. unable to get full detail of medical history as she does not know.
--- NOTE | 2025-10-19 13:33 | PC.NURSE ---
pt lives at home and has two caregivers that goes to home but does not stay with her at night, career technical supervisor stated that she passed her on the way to her home, she followed her trying to get her in the care but pt kept refusing to get in the car for a mile and half, yet kept refusing. she continued to follow her and another person stayed with her why she went to call 911 and the lady that stayed with her stated she fell to ground and not responsive.caregiver darren called in to provider her contact info.
--- NOTE | 2025-10-19 13:48 | PC.NURSE ---
spoke with son johnathon schwartz on phone [phone] he states he has conservatorship and she is a dnr. obtained medical history pt is cared for by two care takes one of them is Opal Garcia [phone]. ok to listen them per son as contact as well
--- NOTE | 2025-10-19 13:53 | EDNOTE_ITS ---
Altered Mental Status RME/HPI General Chief Complaint: Weakness Stated Complaint: WEAKNESS Time Seen by Provider: 10/19/25 13:25 Arrival date/time: 10/19/25 12:53 Limitations: altered mental status (Patient has baseline dementia, mentating at her baseline per skoog machine operator conversation) RME / HPI RME / HPI narrative: DR. YAKOV DANIELS ED EVALUATION: 85-year-old female brought in by EMS after being found [place] the [place] confused. Patient states she slipped but is unsure when, and does not remember how she arrived there. Denies head trauma or head pain. Denies difficulty walking or pain in her back, hips, extremities. She is alert to her name and place, recognizing she is in the hospital. No clear trauma reported. At 13:30, additional history was obtained from Opal, one of the patient?s caretakers. The patient lives on her own but has two caretakers that take care of her during the daytime however the patient lives alone and is alone in the evening time. Has never left the home unattended before. Medical Claims Representative states that patient has become restless at home. Patient herself states that she is bored having to stay inside the house all the time now that she is alone since her . 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 No known medication allergies. Opal has not seen the patient since . States that the last skoog machine operator said that the patient was behaving normally. The last skoog machine operator saw her yesterday, son. Patient's son is her legal power of grid casting machine operator helper, Jarad phone number however he lives multiple hours away. Patient's skoog machine operator Opal states that once the patient is ready to be discharged she request that she be called and that she will come and sweet pickled fruit maker the patient. States that she will stay with the patient overnight until the next care provider arrives. States that she will speak with Jarad and the other providers to help increase her care as she cannot be safely allowed to stay at home given that she becomes restless and tries to leave. Related Data Allergies Allergy/AdvReac Type Severity Reaction Status Date / Time MYCIN ANTIBIOTICS Allergy Mild Uncoded 09/17/09 00:40 Review of Systems Review of Systems Systems Reviewed: All systems reviewed, normal except as documented Past Medical History Past Medical History NEUROLOGIC: Positive Dementia CARDIAC: Positive Cardiac Disorders (aortic stenosis) REPRODUCTIVE: Positive Breast Cancer (bilateral mastectomy) OTHER HISTORY: Positive Chemotherapy, Radiation Therapy, Cancer and Breast Cancer (bilateral mastectomy) Surgical History SURGICAL: Positive of Back Surgery Social History SMOKING STATUS: Never smoker ED Exam General Limitations: Present altered mental status (Patient has baseline dementia, mentating at her baseline per skoog machine operator conversation) General appearance: Present alert and in no apparent distress Head Head exam: Present atraumatic Eye Eye exam: Present normal appearance, PERRL and EOMI ENT ENT exam: Present normal exam, normal oropharynx and mucous membranes moist Neck Neck exam: Present normal inspection, full ROM and trachea midline Chest Chest inspection: Present normal inspection and symmetric chest wall rise Respiratory Respiratory exam: Present normal lung sounds bilaterally Cardiovascular Cardiovascular exam: Present regular rate, normal rhythm and normal heart sounds Abdominal Exam Abdominal exam: Present soft; Absent distention, tenderness or guarding Extremities Exam Extremities exam: Present normal inspection and full ROM Back Exam Back exam: Present normal inspection and full ROM; Absent tenderness Neurological Exam Neurological exam: Present alert and other (Present alert, oriented to name and place; CN II to XII intact; confusion present consistent with dementia history) Psychiatric Psychiatric exam: Present normal affect and normal mood Skin Skin exam: Present warm, dry, intact and normal color Course Quality Measures none Orders Category Date Time Status Insert IV NOW Care 10/19/25 17:32 Active Acetaminophen Stat Lab 10/19/25 14:19 Completed Ammonia Stat Lab 10/19/25 14:19 Completed CBC Stat Lab 10/19/25 14:19 Completed CMP [Comprehensive Metabolic Panel] Stat Lab 10/19/25 14:19 Completed Drug Screen,Urine Stat Lab 10/19/25 13:49 Ordered Salicylate Stat Lab 10/19/25 14:19 Completed T4 (Thyroxine) Stat Lab 10/19/25 14:19 Completed TSH [Thyroid Stimulating Hormone] Stat Lab 10/19/25 14:19 Completed UA, C/S IF [Urinalysis, C/S if Indicated] Stat Lab 10/19/25 13:49 Ordered Ringers Lactated 500 ml [Lactated Ringers] 500 ml Med 10/19/25 17:13 Active IV 500 mls/hr Vital Signs Vital signs: Vital Signs Temperature 98.0 F 10/19/25 12:54 Pulse Rate 96 10/19/25 12:54 Respiratory Rate 20 10/19/25 12:54 Blood Pressure 140/78 H 10/19/25 12:54 Pulse Oximetry (%) 96 10/19/25 12:54 Oxygen Delivery Method Room Air 10/19/25 12:54 Altered Mental Status MDM Narrative MDM Narrative:: I, Ainsley Leon, am scribing for and in the presence of Dr. Johnson. 85-year-old female with altered mentation found outside confused. Baseline dementia with recent UTI and possible unwitnessed fall. Exam shows confusion but otherwise non focal. Workup initiated for infection, metabolic abnormality, or head injury. Differential diagnoses include delirium, worsening dementia, metabolic derangement, urinary tract infection among others. Ordered labs, offer medication for symptom relief Patient nonseptic nontoxic, per report appears to be at her neurologic baseline. Labs without any acute hematologic or significant metabolic abnormality. Thyroid studies unremarkable Tylenol and salicylate levels not elevated ammonia not elevated. At this time my shift is noted transition care to oncoming provider. Patient is pending results of her workup and safe dispo. Patient data External records reviewed:: [facility] previous records and EMS form Clinical information provided by:: patient, EMS and skoog machine operator Social determinants that could affect healthcare access:: none Patient has the following chronic illnesses:: History includes a stroke 1.5 years ago without residual deficits, dementia, and a recent UTI. No known medication allergies. How is presenting disease/condition affected by chronic disease/condition?: exacerbated by Evaluation data The following diagnostics were reviewed and interpreted by me:: lab results Lab and/or radiology exams considered but not ordered:: none Interpretation Summary: See MDM narrative above. Medications / Prescriptions Medications or Prescriptions considered but not ordered:: none Medication administrations:: Medication Administration History Lactated Ringer's (Lactated Ringers) 500 mls @ 500 mls/hr IV .Q1H ONE Stop: 10/19/25 18:12 Last Admin: 10/19/25 17:33 Dose: 500 mls/hr Documented By: [email or web address] Comments: unable to scan bag as we do not have a 500 ml bag see above if any Consultations Consultation(s) initiated? (list below): No Diagnosis Differential diagnosis altered mental status: other (delirium, UTI, and metabolic encephalopathy) Most likely diagnosis given after review of the tests above:: No official diagnoses at this time, still pending diagnostic tests. Patient signout to the operations supervisor 2nd shift provider. Admission Indicated Admission indicated?: not indicated Explain why admission is indicated or not indicated:: No final disposition plan at this time, still pending diagnostic tests. Patient signout to the operations supervisor 2nd shift provider. Admission Request Was there a request for admission?: No Disposition Plan Disposition Plan: other (specify) (Patient signout to the operations supervisor 2nd shift provider, pending remainder of labs and final disposition.) Discharge Plan Prescriptions/Referrals Referrals: Shawn Christian MD [Primary Care Provider, [facility]] - In 1 week Problem List Clinical Impression: Dementia Patient/Caregiver Discharge Instructions Print Language: French
[2025-10-19 14:47] LABS: Ammonia 11 uMol/L (11-32)
[2025-10-19 15:00] VITALS: BP 106/72; PULSE 76; RESP 15; TEMP 36.9; O2SAT 97
[2025-10-19 15:07] LABS: Basophils # (Auto) 0.0 Thou/mm3 (0.0-0.2); Basophils % (Auto) 1 % (0-2.5); Eosinophils # (Auto) 0.1 Thou/mm3 (0.0-0.5); Eosinophils % (Auto) 1 % (0-10); Hematocrit 45.3 % (36.0-46.0); Hemoglobin 15.2 g/dL (12.0-16.0); Immature Granulocytes Auto 0.01 Thou/mm3 (0.00-0.00); Lymphocytes # (Auto) 1.6 Thou/mm3 (1.0-4.8); Lymphocytes % (Auto) 36 % (10-50); Mean Corpuscular HGB Conc 33.6 g/dl (31.0-37.0); Mean Corpuscular Hemoglobin 31.6 pg (25.0-35.0); Mean Corpuscular Volume 94 fL (80-100); Monocytes # (Auto) 0.4 Thou/mm3 (0.0-0.8); Monocytes % (Auto) 8 % (0-12); Neutrophils # (Auto) 2.5 Thou/mm3 (1.8-7.7); Neutrophils % (Auto) 54 % (37-80); Nucleated Red Blood Cell # 0.00 Thou/mm3 (0.00-0.00); Nucleated Red Blood Cell % 0 /100 WBC (0); Platelet Count 156 Thou/mm3 (140-440); RDW Standard Deviation 50.6 fL (36.4-46.3); Red Blood Count 4.81 Miln/mm3 (4.00-5.20); White Blood Count 4.6 Thou/mm3 (3.6-11.0)
[2025-10-19 15:16] LABS: Alanine Aminotransferase 24 U/L (10-49); Albumin, Serum 4.4 gm/dL (3.4-4.8); Albumin/Globulin Ratio 1.6 (1.2-2.2); Alkaline Phosphatase 76 U/L (46-116); Anion Gap 11 (7-16); Aspartate Amino Transferase 39 U/L (0-34); BUN/Creatinine Ratio 15 Ratio (12-20); Bilirubin,Total 0.8 mg/dL (0.3-1.2); Blood Urea Nitrogen 12 mg/dL (9-23); Calcium 9.6 mg/dL (8.3-10.6); Calcium (Corrected) 9.6 mg/dL (8.5-10.1); Carbon Dioxide 24.9 mMol/L (20.0-31.0); Chloride 109 mMol/L (98-107); Creatinine (Component) 0.8 mg/dL (0.6-1.3); Estimated Creatinine Clearance 47.8 mL/min (>60); Globulin 2.7 gm/dL (2.3-3.5); Glucose 97 mg/dL (74-106); Osmolality,Calculated 288 (275-295); Potassium 4.1 mMol/L (3.4-5.1); Sodium 145 mMol/L (136-145); Thyroid Stimulating Hormone 0.85 uIU/mL (0.55-4.78); Total Protein 7.1 gm/dL (5.7-8.2); eGFR > 60 See Note
[2025-10-19 15:19] LABS: Acetaminophen < 2.0 mcg/mL (10.0-20.0); Salicylate < 3.0 mg/dL
[2025-10-19 15:20] LABS: T4 (Thyroxine) 5.9 mcg/dL (4.5-10.9)
[2025-10-19 17:26] VITALS: BP 158/80; PULSE 80; RESP 20; TEMP 36.7; O2SAT 94
[2025-10-19] MEDS: RINGERS LACTATED 500 ML 500 ML IV (17:33)
--- NOTE | 2025-10-19 18:28 | EDNOTE_ITS ---
Emergency Room Addendum Addendum Narrative: 1800: Care assumed from Dr. Johnson (emergency physician). Past medical, surgical, social and family history reviewed. Vitals and home medications reviewed. Results and treatment plan discussed. I will assume the care of the patient at this time and will follow the patient, pending UA and home health care social worker consult in the morning. The following addendum documentation note is intended to reflect any pending information, findings, or radiology results not included in the patient?s initial chart by the previous shift scribe. Patient became acutely agitated demanding to be DC to home. Patient notably demented and living conditions currently present a danger to self due to lack of supervision at night, therefore patient was medicated with combination of Haldol and Versed to sleep comfortably throughout the night. 0600: Care assumed by Dr. Johnson (emergency physician). Past medical, surgical, social and family history reviewed. Vitals and home medications reviewed. Results and treatment plan discussed. They will assume the care of the patient at this time and will follow the patient, pending social servicess consult.
[2025-10-19] MEDS: RINGERS LACTATED 500 ML 500 ML 999 ML IV (22:29)
[2025-10-19] MEDS: MIDAZOLAM INJ 1 MG/ML VIAL 2 ML 2 MG IM (23:18)
[2025-10-19] MEDS: HALOPERIDOL LACT INJ 5 MG/ML VIAL 10 MG IM (23:18)
[2025-10-20] VITALS (7 sets, daily range): BP systolic 108–144; BP diastolic 60–83; PULSE 68–92; RESP 15–18; TEMP 36.6–36.9; O2SAT 95–100
--- NOTE | 2025-10-20 02:09 | PC.NURSE ---
pt is sleeping VS stable.
[2025-10-20] MEDS: RINGERS LACTATED 1000 ML 1,000 ML 999 ML IV (06:29)
--- NOTE | 2025-10-20 07:03 | PD.EDADDENDU ---
Emergency Room Addendum Addendum Narrative: Patient is an 85-year-old female with medical history notable for dementia that is in the emergency department after patient left her home, refused to go back because she states that she was bored at home. Patient has caregivers at home approximately 8 to 10 hours a day. Patient usually is alone at home in the evening time. Patient has never left the home unattended in the evening time prior to yesterday's episode. Evaluated patient yesterday, ordered labs I spoke to her caregiver Opal states that moving forward the patient will not be left alone as she is at risk for leaving her home and getting hurt. States that she would coordinate with her son as well as the other caregivers to make sure that the patient has 24-hour care. Overnight patient became agitated tried to leave the emergency department received medication for agitation. At this time patient is pending urine, once UA results will be able to be discharged back to her caregivers. UA without evidence of infection. Patient is hemodynamically stable not distress. I spoke with patient's son Jarad, states that Opal or caregiver will be here shortly to vegetable picker the patient. States that there will be somebody taking care of his mom 24 hours a day 7 days a week and that they are looking into placement into an assisted care memory care center.
[2025-10-20 08:35] LABS: Collection Type, Urine Catheter; Squamous Epithelial Cell,Urine 0 /hpf (0-5)
[2025-10-20 08:51] LABS: Bilirubin,Urine Negative (Negative); Blood,Urine Negative (Negative); Clarity,Urine Clear (Clear/Hazy); Color,Urine Yellow (Lt Yel-Yel); Culture Indicated,Urine Not Indicated; Glucose, Urine Negative (Negative); Ketones,Urine Negative (Negative); Leukocyte Esterase,Urine Negative (Negative); Nitrite,Urine Negative (Negative); PH,Urine 6.5 (5.0-7.0); Protein,Urine Negative (Neg - Trace); RBC,Urine 1 /hpf (0-3); Specific Gravity,Urine 1.019 (1.001-1.035); Urobilinogen,Urine Negative mg/dL (0.0-1.0); WBC,Urine 3 /hpf (0-5)
[2025-10-20 09:25] LABS: Amphetamine/Methamp Scrn,U Negative (Negative); Barbiturate Screen,Urine Negative (Negative); Benzodiazepines Screen,Urine Positive (Negative); Benzoylecgonine Screen, Ur Negative (Negative); Fentanyl Screen,Urine Negative (Negative); Opiate Screen,Urine Negative (Negative); THC Screen,Urine Negative (Negative)
== END 2025-10-20 10:43 | disposition home health service (06) ==
PROVIDERS: Emergency Provider Emergency Medicine; PCP Family Medicine
DX: F03.90 Unspecified dementia, unspecified severity, without behavioral disturbance, psychotic disturbance, mood disturbance, and anxiety (principal); Z60.2 Problems related to living alone
CPT/HCPCS: 36415; 51701; 80053; 80307; 80329; 81001; 82140; 84436; 84443; 85025; 96360; 96361; 96372; 99283; J1630; J2250; J7120; G0480